=== PATIENT | male | born 1980 | race Caucasian/White ===

== ENCOUNTER 2022-12-28 08:58 | Outpatient (REF) | payer BC, SELFPAY ==
[2022-12-28 16:08] LABS: Calculated LDL 173 mg/dL (<100); Cholesterol 264 mg/dL (<200); HDL Cholesterol 53 mg/dL (40-60); Triglyceride 192 mg/dL (<150)
== END 2022-12-28 08:59 | disposition home or self-care (01) ==
LOC: NCHCN 08:58
PROVIDERS: PCP Nurse Practitioner Family; Visit Provider Nurse Practitioner Family
DX: Z00.00 Encounter for general adult medical examination without abnormal findings (principal); E78.5 Hyperlipidemia, unspecified; E66.9 Obesity, unspecified
CPT/HCPCS: 80061